=== PATIENT | female | born 1970 | race Caucasian/White ===

== ENCOUNTER 2017-07-22 21:28 | Emergency (ER) | payer OTHER ==
[2017-07-22 21:35] VITALS: BP 137/98; PULSE 89; TEMP 99; BMI 29.5
[2017-07-23] MEDS ORDERED: ACETAMINOPHEN 325 MG TABLET (FP) ONE (00:01)
--- NOTE | 2017-07-23 00:07 | PDOC ---
History of Present Illness - General Chief Complaint: Sore Throat Stated Complaint: SORE THROAT/FEVER Time Seen by Provider: 07/22/17 21:45 - History of Present Illness Initial Comments: This otherwise healthy 47 year old woman presents with a four-day history of sore throat, subjective fever and nonproductive cough. Patient states that she has been taking Motrin as needed for the fever (which she has not measured) and throat pain. Despite this, she continues have pain on swallowing. She denies sick contacts but her adult daughter who lives with her works with school-aged children. No recent strep infection in her daughter. Patient has no recent nausea/vomiting/diarrhea. She is able to take oral hydration without difficulty Patient is a nonsmoker. No recent travel. Past History - Past Medical History Allergies/Adverse Reactions: Allergies Allergy/AdvReac Type Severity Reaction Status Date / Time aspirin Allergy Verified 04/23/13 19:53 Home Medications: Ambulatory Orders Losartan Potassium [Cozaar] 50 mg PO DAILY #10 tablet 04/23/13 Hydrochlorothiazide [Hctz -] 12.5 mg PO DAILY 04/06/15 COPD: No HTN: Yes (NOT TAKING HER MEDS) - Surgical History Abdominal Surgery: Yes (ABD HERNIA REPAIR) - Immunization History Immunization Up to Date: No - Suicide/Smoking/Psychosocial Hx Smoking History: Unknown if ever smoked Have you smoked in the past 12 months: No Number of Cigarettes Smoked Daily: 0 Information on smoking cessation initiated: No Hx Alcohol Use: No Drug/Substance Use Hx: No Substance Use Type: None Review of Systems - Review of Systems Able to Perform ROS?: Yes Comments:: 12 point review of systems is negative except for what is noted in the history of present illness *Physical Exam - Vital Signs Last Vital Signs Temp Pulse Resp BP Pulse Ox 99 F 89 14 137/98 100 07/22/17 21:30 07/22/17 21:30 07/22/17 21:30 07/22/17 21:30 07/22/17 21:30 - Physical Exam Comments: GENERAL: Adult female, alert and oriented 3, in no acute distress HEAD: Normal with no signs of trauma. EYES: PERRLA, EOMI, sclera anicteric, conjunctiva clear. ENT: Ears normal, nares patent, oropharynx erythematous without exudates. 1+ enlarged tonsils without masses .Moist mucous membranes. NECK: Normal range of motion, supple, JVD, or masses. Bilateral tender, 1+ enlarged anterior cervical lymphadenopathy LUNGS: Breath sounds equal, clear to auscultation bilaterally. No wheezes, and no crackles. HEART:Regular rate and rhythm, normal S1 and S2 without murmur, rub or gallop. ABDOMEN:.normal bowel sounds No guarding,tenderness or rebound.No masses No distention. EXTREMITIES: Normal range of motion, no edema. No clubbing or cyanosis. No erythema, or tenderness. NEUROLOGICAL: Cranial nerves II through XII grossly intact. Normal speech. No focal neurological deficits. MUSCULOSKELETAL: Back non-tender to palpation, no CVA tenderness SKIN: Warm, Dry, normal turgor, no rashes or lesions noted. Medical Decision Making - Medical Decision Making Quick strep/throat culture sent. Patient will be discharged with instructions to hydrate and rest, alternating Tylenol with Motrin as needed for fever and pain. She will be contacted if her quick strep was positive and prescription sent to her pharmacy. *DC/Admit/Observation/Transfer Diagnosis at time of Disposition: Acute pharyngitis Qualifiers: Pharyngitis/tonsillitis etiology: unspecified etiology Qualified Code(s): J02.9 - Acute pharyngitis, unspecified - Discharge Dispostion Disposition: HOME Condition at time of disposition: Stable - Referrals - Patient Instructions Printed Discharge Instructions: DI for Pharyngitis/Tonsillopharyngitis -- Adult Additional Instructions: Rest; drink plenty of fluids Alternate ibuprofen with acetaminophen as discussed If test is positive for strep, we will notify you and send prescription tear pharmacy Return to ER if you have severe persistent pain or high fever Follow-up with your general doctor within the next 5 days - Post Discharge Activity
== END 2017-07-23 00:24 | disposition home or self-care (01) ==
LOC: FER 21:28
DX: J02.9 Acute pharyngitis, unspecified (principal); I10 Essential (primary) hypertension
CPT/HCPCS: 87070; 87430; 99282-25

== ENCOUNTER 2017-08-15 19:44 | Emergency (ER) | payer OTHER ==
[2017-08-15 19:52] VITALS: BP 143/82; PULSE 106; TEMP 99.4; BMI 29.5
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
[2017-08-15] MEDS ORDERED: IBUPROFEN 600 MG TABLET (FP) PO ONE ×2 (22:01→22:02)
== END 2017-08-15 22:43 | disposition home or self-care (01) ==
LOC: FER 19:44
DX: S16.1XXA Strain of muscle, fascia and tendon at neck level, initial encounter (principal); S46.912A Strain of unspecified muscle, fascia and tendon at shoulder and upper arm level, left arm, initial encounter; V43.52XA Car driver injured in collision with other type car in traffic accident, initial encounter; Y93.89 Activity, other specified; Y92.410 Unspecified street and highway as the place of occurrence of the external cause; I10 Essential (primary) hypertension; Z98.84 Bariatric surgery status
CPT/HCPCS: 70450-TC; 72125-TC; 73030-TC-LT-FY; 84703; 99281-25

== ENCOUNTER 2018-04-17 08:00 | Emergency (ER) | payer OTHER ==
--- NOTE | 2018-04-17 08:01 | PDOC ---
History of Present Illness - General Chief Complaint: Edema Stated Complaint: EDEMA Time Seen by Provider: 04/17/18 08:01 - History of Present Illness Initial Comments: 04/17/18 08:18 47yo female with hx of HTN on losartan and HCTZ presents for eval of edema to arms and legs x 3 weeks, that has been getting worse. States she has been urinating less when she takes her HCTZ and the swelling doesn't go away when she lays flat at night. States sock indents are not resolving overnight. Pt denies cp/sob. No f/c. No brunson. No blurred vision. No paresthesias. No calf ttp. No recent travel. No abd pain. No n/v/d. No dysuria. No other complaints. Pt did not take her BP meds this AM prior to arrival. PMHx: htn PShx: stomach banding, abd hernia repair, herniated disc sx Allergies: ASA Home Meds: losartan 50mg, HCTZ 12.5mg 04/17/18 08:25 Past History - Past Medical History Allergies/Adverse Reactions: Allergies Allergy/AdvReac Type Severity Reaction Status Date / Time aspirin Allergy Verified 04/17/18 08:01 Home Medications: Ambulatory Orders Losartan Potassium [Cozaar] 50 mg PO DAILY #10 tablet 04/23/13 Hydrochlorothiazide [Hctz -] 12.5 mg PO DAILY 04/06/15 COPD: No HTN: Yes - Surgical History Abdominal Surgery: Yes (ABD HERNIA REPAIR) - Immunization History Immunization Up to Date: No - Suicide/Smoking/Psychosocial Hx Smoking History: Never smoked Have you smoked in the past 12 months: No Number of Cigarettes Smoked Daily: 0 Hx Alcohol Use: No Drug/Substance Use Hx: No Substance Use Type: None Review of Systems - Review of Systems Able to Perform ROS?: Yes Comments:: 04/17/18 08:12 Daughter at the bedside to assist with translation Is the patient limited [place] proficient: Yes Constitutional: No: Chills, Fever HEENTM: No: Blurred Vision, Double Vision Respiratory: No: Cough, Shortness of Breath, SOB with Exertion, SOB at Rest Cardiac (ROS): Yes: Edema. No: Chest Pain, Irregular Heart Rate, Lightheadedness, Palpitations ABD/GI: No: Diarrhea, Nausea, Vomiting : No: Burning, Dysuria Musculoskeletal: No: Back Pain Integumentary: No: Erythema Neurological: No: Headache, Numbness, Paresthesia All Other Systems: Reviewed and Negative *Physical Exam - Vital Signs 04/17/18 08:13 Selected Entries 04/17/18 08:00 Temperature 98.7 F Pulse Rate 75 Pulse Rhythm [ Regular Left] Pulse Strength Normal [Left] Respiratory 20 Rate Blood Pressure 135/98 Blood Pressure 110 Mean O2 Sat by Pulse 98 Oximetry (%) Oxygen Delivery Room Air Method Weight 83.007 kg - Physical Exam General Appearance: Yes: Nourished, Appropriately Dressed HEENT: positive: EOMI, Normal Voice Neck: positive: Supple Respiratory/Chest: positive: Lungs Clear, Normal Breath Sounds. negative: Respiratory Distress, Accessory Muscle Use Cardiovascular: positive: Regular Rhythm, Regular Rate, S1, S2, Edema (b/l LE 1 + pitting edema) Gastrointestinal/Abdominal: positive: Normal Bowel Sounds, Soft. negative: Tender, Guarding, Rebound, Tenderness Musculoskeletal: positive: Normal Inspection, Other (ambulatory with a steady gait) Extremity: positive: Normal Capillary Refill, Normal Range of Motion, Pedal Edema, Swelling, Other (edema to b/l LE, mild swelling to b/l hands). negative : Calf Tenderness, Erythema Integumentary: positive: Normal Color, Dry, Warm. negative: Erythema, Ecchymosis Neurologic: positive: Fully Oriented, Alert, Normal Mood/Affect, Normal Response Heart Score/ECG Review - ECG Intrepretation Comment:: 04/17/18 08:25 sinus at 71, nl axis, nl interval, no acute st/t wave findings ED Treatment Course - LABORATORY CBC & Chemistry Diagram: 04/17/18 08:44 04/17/18 08:44 Medical Decision Making - Medical Decision Making 04/17/18 08:15 a/p: 47yo female with LE swelling -concern for new onset heart failure vs dependent edema -low suspicion for DVT with b/l LE swelling and no calf ttp -mildly elevated diastolic pressure -did not take meds this AM -will send labs, bnp, trop, ekg, cxr -will monitor and reassess -poss dose of lasix 04/17/18 08:23 Cards: Dr. Acevedo in [place] 04/17/18 09:08 cxr clear 04/17/18 10:28 discussed EKG and CXR BNP pending trop negative pt sleeping in the bed in NAD 04/17/18 11:15 bnp not elevated did not take BP meds will give 25mg hctz pt will call her cards and follow up on Thursday in his office for re-eval of BP and LE edema stable for dc to home discussed plan as outpt answered all questions *DC/Admit/Observation/Transfer Diagnosis at time of Disposition: Dependent edema - Discharge Dispostion Disposition: HOME Condition at time of disposition: Stable Decision to Admit order: No - Referrals Referrals: Lino Ruff MD [Staff Physician] - Edwin Arguello MD [Staff Physician] - - Patient Instructions Printed Discharge Instructions: DI for Peripheral Edema -- Bilateral Additional Instructions: Please take your medications as prescribed. Please follow up with your varnish thinner this week. Please return to the ED with any further concerns or complaints. - Post Discharge Activity
[2018-04-17 08:05] VITALS: BP 135/98; PULSE 75; TEMP 98.7; BMI 29.5
[2018-04-17 09:03] LABS: BASO % 0.5 % (0-2.0); EOS % 1.4 % (0-4.5); HEMATOCRIT 31.7 % (32.4-45.2); HEMOGLOBIN 10.3 GM/dl (10.7-15.3); MCHC 32.5 g/dl (32.0-36.0); MEAN CELL VOLUME 86.2 fl (80-96); MEAN PLT VOLUME 7.3 fl (7.5-11.1); MONO % 6.1 % (3.8-10.2); PLATELET COUNT 318 K/MM3 (134-434); RBC 3.67 M/mm3 (3.60-5.2); RDW 17.3 % (11.6-15.6); WHITE BLOOD COUNT 6.9 K/mm3 (4.0-10.8)
[2018-04-17 09:07] LABS: INR 1.11 (0.82-1.09); PROTHROMBIN TIME (PATIENT) 12.4 SEC (10.2-13.0)
[2018-04-17 09:12] LABS: ALBUMIN 3.1 g/dl (3.5-5.0); ALK PHOS 53 U/L (32-92); ANION GAP 7 MMOL/L (8-16); BILIRUBIN,TOTAL 0.4 mg/dl (0.2-1.0); BLOOD UREA NITROGEN 8 mg/dl (7-18); CHLORIDE 105 mmol/L (98-107); CO2 24 mmol/L (22-28); CREATININE 0.6 mg/dl (0.6-1.3); GLUCOSE,RANDOM 94 mg/dl (74-106); MAGNESIUM 1.9 mg/dL (1.8-2.4); POTASSIUM 3.5 mmol/L (3.5-5.1); SGOT/AST 20 U/L (10-42); SGPT/ALT 13 U/L (10-40); SODIUM 136 mmol/L (136-145); TOT PROT 6.8 g/dl (6.4-8.3)
[2018-04-17] MEDS ORDERED: HYDROCHLOROTHIAZIDE 25 MG TABLET (FP) PO ONE (11:11)
[2018-04-17] MEDS ORDERED: HYDROCHLOROTHIAZIDE 25 MG TABLET (FP) ONE (11:12)
--- NOTE | 2018-04-17 15:44 | EKG ---
Test Reason : Blood Pressure : / mmHG Vent. Rate : 071 BPM Atrial Rate : 071 BPM P-R Int : 166 ms QRS Dur : 080 ms QT Int : 392 ms P-R-T Axes : 021 025 044 degrees QTc Int : 425 ms NORMAL SINUS RHYTHM NORMAL ECG NO PREVIOUS ECGS AVAILABLE Confirmed by RODRI HAN MD ([id number]) on 04/17/2018 3:43:48 PM Referred By: YOLA MELGAR Confirmed By:RODRI HAN MD
== END 2018-04-17 11:23 | disposition home or self-care (01) ==
LOC: FER 08:00
DX: R60.9 Edema, unspecified (principal); I10 Essential (primary) hypertension
CPT/HCPCS: 36415; 71046-TC-FY; 80053; 82550; 83735; 83880; 84443; 84484; 84703; 85025; 85610; 85730; 93005; 99283-25

== ENCOUNTER 2023-05-07 14:56 | Emergency (ER) | payer OTHER ==
[2023-05-07] MEDS ORDERED: LORazepam 2 MG TABLET PO ONE (15:32)
[2023-05-07] MEDS ORDERED: LORazepam 0.5 MG TABLET ONE (15:47)
[2023-05-07 16:01] LABS: HEMATOCRIT 37.3 % (32.4-45.2); MCH 29.3 pg (25.7-33.7); MCHC 32.1 g/dl (32.0-36.0); MEAN CELL VOLUME 91.4 fl (80-96); MEAN PLT VOLUME 7.6 fl (7.5-11.1); RBC 4.08 10^6/uL (3.60-5.2); RDW 15.3 % (11.6-15.6); WHITE BLOOD COUNT 8.1 10^3/uL (4.0-10.8)
[2023-05-07 16:06] VITALS: RESP 16; TEMP 97.8; BMI 43.3
[2023-05-07 16:09] LABS: ALBUMIN 4.1 g/dl (3.4-5.0); BILIRUBIN,TOTAL 0.5 mg/dl (0.2-1); CALCIUM 9.9 mg/dl (8.5-10.1); CREATININE 0.6 mg/dl (0.6-1.3); POTASSIUM 3.7 mmol/L (3.5-5.1); TOT PROT 7.1 g/dl (6.4-8.2)
[2023-05-07 16:29] LABS: PLATELET ESTIMATE ADEQUATE
[2023-05-07 17:50] VITALS: BP 122/87; PULSE 85
== END 2023-05-07 17:50 | disposition home or self-care (01) ==
LOC: FER 14:56
DX: R00.2 Palpitations (principal); F41.9 Anxiety disorder, unspecified
CPT/HCPCS: 36415; 71046-TC-FY; 80053; 84443; 84484; 85027; 85379; 93005; 99285-25